=== PATIENT | female | born 1960 | race Hispanic/Latino ===

== ENCOUNTER 2025-01-21 05:10 | Emergency (ER) | payer MEDICARE, SELFPAY ==
[2025-01-21 05:15] VITALS: BP 169/111
--- NOTE | 2025-01-21 05:45 | ED.GENMED ---
History of Present Illness
<Neal Monge DO - Last Filed: 01/22/25 13:55>
General
Chief Complaint: Chest Pain
Source: patient
Time Seen by Provider: 01/21/25 05:31
History of Present Illness
History of Present Illness:
Note:
CHIEF COMPLAINT(S)
Neck pain radiating to the right shoulder and pressure in the neck.
HISTORY OF PRESENT ILLNESS
The patient is a 65-year-old female presenting with neck pain starting last night around 9 PM. She describes the pain as a pressure across the front and back of her neck, extending toward the right deltoid area. The pain worsens when taking deep
breaths and is felt as constant pressure even at rest. She denies any chest pain, difficulty breathing, or swallowing issues. She experiences increased discomfort when lying down, which impacts her ability to sleep. No history of trauma or injury
was reported. Has never had the symptoms before
PAST MEDICAL AND SURGICAL HISTORY
none
CHRONIC MEDICAL CONDITIONS SIGNIFICANTLY AFFECTING CARE
none
SOCIAL DETERMINANTS AFFECTING HEALTH
The patient does not engage in regular medical checkups and has not monitored her blood pressure for the past two years.
MEDICATIONS
none
REVIEW OF SYSTEMS
- Neck: Pressure and pain across the front and to the right deltoid.
- Cardiovascular: No reported chest pain.
- Respiratory: No breathing difficulties.
- Throat: No difficulty swallowing.
- Neurological: Reports of vertigo-like sensation in the morning.
PHYSICAL EXAM
General: Alert, no acute distress.
Skin: Warm, dry.
Head: Normocephalic, atraumatic.
Neck: Supple, trachea midline, mild anterior tenderness on touch. No crepitus. No significant lymphadenopathy.
Eye, Ears, Nose, Mouth and Throat: Oral mucosa moist.
Cardiovascular: Normal peripheral perfusion, no edema. Heart regular without murmur
Respiratory: Lungs clear to auscultation, respirations unlabored.
Gastrointestinal: Abdomen nondistended.
Back: Normal range of motion, normal alignment.
Musculoskeletal: Normal range of motion, normal strength.
Neurological: Alert and oriented to person, place, time, and situation, no focal neurological deficit observed.
Psychiatric: Cooperative, appropriate mood & affect.
PLAN
1. Conduct laboratory studies to assess overall health and heart function.
2. Perform a chest X-ray to evaluate the aorta and heart.
3. Monitor blood pressure due to initial elevated readings.
DIFFERENTIAL DIAGNOSIS
The Differential Diagnosis includes, in no particular order and is not limited to:
1. Cervical spine radiculopathy
2. Musculoskeletal strain or sprain
3. Acute coronary syndrome
4. Gastroesophageal reflux disease
5. Thyroiditis
6. Cervical spondylosis
7. Anxiety or panic disorder
8. Myofascial pain syndrome
9. Pericarditis
10. Angina pectoris
0600 patient signed out to daysmaft team pending results and reassessment
Past History
<Neal Monge, DO - Last Filed: 01/22/25 13:55>
Past History
ED Past Medical History: Other (Kidney stones)
ED Past Surgical History: Appendectomy and Gynecological (Partial hysterectomy)
Social History
Tobacco: Non-smoker
Alcohol: None
Drug: None
Living: with family
Phy Exam
<Neal Monge, DO - Last Filed: 01/22/25 13:55>
Physical Exam
Physical Exam:
.
Scores
<Neal Monge, DO - Last Filed: 01/22/25 13:55>
Heart Score for Chest Pain Patients
STEMI patient?: Not applicable
Course
<Neal Monge DO - Last Filed: 01/22/25 13:55>
Orders/Labs/Results
Orders:
Orders
01/21/25 05:42
CR Chest - 2 Views Urgent
Comment:
Reason For Exam: neck pain
01/21/25 05:46
Electrocardiogram (*1) Urgent
Reason for Study: Chest Pain
EKG- Treatment ONCE
01/21/25 05:53
Complete Blood Count/With Diff Urgent
Comprehensive Metabolic Panel Urgent
Troponin I Urgent
01/21/25 06:50
CT Chest Angio W/wo Iv Contras Urgent
Comment:
Reason For Exam: chest pain
01/21/25 06:56
Morphine Sulfate 2 mg IV NOW STA
Abnormal Lab Results
01/21/25
05:53
MPV 11.1 H fL
(7.4-10.4)
Absolute Neuts (auto) 6.6 H 10^3/uL
(1.4-6.5)
Lymphocytes % 15.6 L %
(20.5-51.1)
Chloride 109 H mmol/L
(98-107)
BUN 27 H mg/dl
(7-17)
Glucose 140 H mg/dl
(70-99)
01/21/25 05:53
01/21/25 05:53
Vital Signs
Initial and Last Documented VS:
Initial Vital Signs
Temp Pulse Resp BP Pulse Ox
98.4 F 91 18 169/111 98
01/21/25 05:15 01/21/25 05:15 01/21/25 05:15 01/21/25 05:15 01/21/25 05:15
Last Documented Vital Signs
Temp Pulse Resp BP Pulse Ox
98.4 F 93 20 148/93 100
01/21/25 05:15 01/21/25 09:00 01/21/25 09:00 01/21/25 09:15 01/21/25 09:00
<Rachid Connor, DO - Last Filed: 01/21/25 09:03>
Orders/Labs/Results
Orders:
Orders
01/21/25 05:42
CR Chest - 2 Views Urgent
Comment:
Reason For Exam: neck pain
01/21/25 05:46
Electrocardiogram (*1) Urgent
Reason for Study: Chest Pain
EKG- Treatment ONCE
01/21/25 05:53
Complete Blood Count/With Diff Urgent
Comprehensive Metabolic Panel Urgent
Troponin I Urgent
01/21/25 06:50
CT Chest Angio W/wo Iv Contras Urgent
Comment:
Reason For Exam: chest pain
01/21/25 06:56
Morphine Sulfate 2 mg IV NOW STA
Abnormal Lab Results
01/21/25
05:53
MPV 11.1 H fL
(7.4-10.4)
Absolute Neuts (auto) 6.6 H 10^3/uL
(1.4-6.5)
Lymphocytes % 15.6 L %
(20.5-51.1)
Chloride 109 H mmol/L
(98-107)
BUN 27 H mg/dl
(7-17)
Glucose 140 H mg/dl
(70-99)
01/21/25 05:53
01/21/25 05:53
Vital Signs
Initial and Last Documented VS:
Initial Vital Signs
Temp Pulse Resp BP Pulse Ox
98.4 F 91 18 169/111 98
01/21/25 05:15 01/21/25 05:15 01/21/25 05:15 01/21/25 05:15 01/21/25 05:15
Last Documented Vital Signs
Temp Pulse Resp BP Pulse Ox
98.4 F 93 20 148/93 100
01/21/25 05:15 01/21/25 09:00 01/21/25 09:00 01/21/25 09:15 01/21/25 09:00
<Neal Monge, DO - Last Filed: 01/22/25 13:55>
*Pulse Oximetry
SaO2: 98
Oxygen Mode of Delivery: Room air
Patient hypoxic: no
*EKG
Interpreted by ED Provider?: Yes
Interpretation: normal
Rate: normal
Rhythm: sinus
Hamilton: normal axis
Interval: normal interval
QRS Pattern: normal QRS
Ischemia: no ischemia
*Childcare Worker Interpretation
Rate: normal
Interpretation: normal
Rhythm: sinus
*Critical Care Note
Total Time (30-74mins, 75-104mins- exclusive of procedures): Not Applicable
<Rachid Connor, DO - Last Filed: 01/21/25 09:03>
Update Note
Update Note:
0649: Full patient care assumed by me at end of attending shift pending results for further treatment planning. On reexamination, patient still is complaining of discomfort in her anterior chest radiating to her neck. No paresthesias to arms or
legs. 2+ DP and radial pulses present symmetric. I discussed with patient and failed member present bedside very reassuring workup so far including negative troponin, normal CBC. I independently viewed and interpreted chest x-ray showing no
mediastinal enlargement, no pleural effusions, no pneumothorax, normal cardiac silhouette. Given persistence of symptoms, mild hypertension and patient age, will obtain CT angio of the chest to rule out aortic dissection. Patient and feeling
member present at bedside agree with plan at current.
0900: Reviewed with patient and feel member present at bedside very reassuring CT of the chest-no evidence for aortic pathology. Patient states that when she received the injection of IV contrast she had exacerbation of her discomfort, which has
improved. I discussed with patient possible alternative etiology of symptoms related to muscle strain. No evidence for acute worrisome process found on extensive workup here today. I encouraged patient to use Tylenol for her discomforts and to
follow-up with primary care physician. She and family were present at bedside agree with plan at current
ED Attending Note
<Neal Monge, DO - Last Filed: 01/22/25 13:55>
-
Portions of this chart may have been created with voice recognition software.� Occasional wrong word or��sound alike� substitutions may have occurred due to the inherent limitations of voice recognition software.
Discharge Plan
Departure
Patient Disposition: Home (Routine Discharge)
Date of Disposition: 01/21/25
Time of Disposition: 09:02
Patient with high blood pressure during this ER visit?: Yes
Discharge Problem:
Chest pain
Instructions: Chest Pain DCA Follow Up
Prescriptions:
No Action
amoxicillin-pot clavulanate 1 TABLET tablet
1 tab PO Q12 Qty: 19 0RF
Referrals:
Pipe Kirk MD [Family Provider, [facility]]
Activity Restrictions/Additional Instructions:
Use Tylenol as needed for any discomfort. Follow-up with both cardiology and primary care physician as referred above. Return to the ER for any concerns
Interventions
Interventions:
*Risk Screen - Suicide Last Done: 01/21/25 05:22
*General Assessment Last Done: 01/21/25 05:23
*Neglect/Abuse Screening Last Done: 01/21/25 05:22
*ED- Fall Risk Assessment Last Done: 01/21/25 05:53
*ED COVID-19 Vaccine History Last Done: 01/21/25 05:22
*ED Influenza Vaccine History Last Done: 01/21/25 05:22
*Nursing Disposition Last Done: 01/21/25 10:05
ED- Cardiac Assessment Last Done: 01/21/25 05:45
Discharge Date and Time
Discharge Date/Time: 01/21/25 09:30
Print Language: MALTESE
[2025-01-21 05:52] VITALS: BP 165/87
[2025-01-21 05:58] LABS: Hematocrit 42.7 % (37.0-47.0); Hemoglobin 14.3 g/dL (12.0-16.0); Mean Corp Hgb Conc. 33.5 g/dL (33.0-37.0); Mean Corpuscular Volume 87.5 fL (81.0-99.0); Nucleated Red Blood Cells % 0 %; Platelet Count 198 10^3/uL (130-400); Red Cell Dist. Width 12.4 % (11.5-14.5)
[2025-01-21 06:16] VITALS: BP 161/99
[2025-01-21 06:26] LABS: ALT (SGPT) 27 U/L (0-35); AST (SGOT) 32 U/L (14-36); Albumin 4.5 g/dl (3.5-5.0); Alkaline Phosphatase 62 U/L (38-126); Blood Urea Nitrogen 27 mg/dl (7-17); Calcium 9.5 mg/dl (8.4-10.2); Carbon Dioxide 22 mmol/L (22-30); Chloride 109 mmol/L (98-107); Glucose 140 mg/dl (70-99); Potassium 4.0 mmol/L (3.5-5.1); Sodium 140 mmol/L (135-145); Total Protein 7.8 g/dl (6.3-8.2); eGFR > 60.00
[2025-01-21 06:34] LABS: Troponin I < 0.012 ng/ml
[2025-01-21 07:00] VITALS: BP 176/97
[2025-01-21 09:15] VITALS: BP 148/93
== END 2025-01-21 09:30 | disposition home or self-care (01) ==
LOC: EMR 05:10
PROVIDERS: EMERGENCY PHYSICIAN Emergency Medicine; FAMILY PHYSICIAN Family Medicine
DX: R07.9 Chest pain, unspecified (principal); I10 Essential (primary) hypertension
CPT/HCPCS: 99284; 71046; 71275; 80053; 84484; 85025; 93005; Q9967